=== PATIENT | female | born 1950 | race African-American/Black ===

== ENCOUNTER 2019-05-17 11:38 | Inpatient (IN) ==
[2019-05-17] MEDS ORDERED: FUROSEMIDE 100 MG/10 ML VIAL IV STA (13:14)
[2019-05-17 14:58] LABS: Basophils % 0.5 % (0.0-0.8); Eosinophils # 0.1 10*3/uL (0.0-0.87); Eosinophils % 2.1 % (0.00-10.9); Hematocrit 42.6 VOL% (35.7-47.0); Hemoglobin 13.4 GM/DL (12.0-16.0); Immature Granulocytes % 0.2 %; Immature Granulocytes Absolute 0.01 #; Lymphocytes # 1.4 10*3/uL (1.4-4.0); Lymphocytes % 22.4 % (21.3-54.2); Mean Corpuscular HGB Conc 31.5 GM/DL (32-36); Mean Corpuscular Volume 85.4 FL (87-102); Mean Platelet Volume 12.6 FL (9.6-12.0); Monocytes % 11.2 % (1.7-12.7); Neutrophils % 63.6 % (38.7-73.9); Platelet Count 225 T/CUMM (130-400); Red Blood Count 4.99 MC/CUMM (3.8-5.5); Red Cell Distribution Width 14.4 % (9.3-17.3); White Blood Count 6.2 T/CUMM (4-12)
[2019-05-17 15:21] LABS: Albumin 3.6 G/DL (3.4-5.0); Bilirubin,Total 0.4 MG/DL (0.2-1.0); Calcium 9.1 MG/DL (8.5-10.1); Osmolality,Calculated 290.7 MOS/KG (273-304); Total Protein 7.4 G/DL (6.4-8.3)
[2019-05-17 15:26] LABS: PT Patient Result 10.7 SECS; Partial Thromboplastin Time 29.1 SECS (0-40)
[2019-05-17] MEDS ORDERED: ACETAMINOPHEN 325 MG TABLET PO PRN (15:39)
[2019-05-17] MEDS ORDERED: LACTULOSE 20 GM/30 ML UDCUP PO PRN (15:39)
[2019-05-17] MEDS ORDERED: ONDANSETRON 4 MG/2 ML VIAL IV PRN (15:39)
[2019-05-17] MEDS ORDERED: BISACODYL 5 MG TABLET PO PRN (15:39)
[2019-05-17 15:40] LABS: Apearance,Urine CLEAR (Clear); Bilirubin,Urine Negative (Negative); Blood, Urine Negative (Negative); Glucose,Urine (UA) Negative (Negative); Ketones,Urine Negative (Negative); Mucus,Urine Occasional /LPF (Occasional); Nitrite,Urine Negative (Negative); Protein,Urine 100 MG/DL; RBC,Urine 1 /HPF (0-4); Squamous Epithelial Cell,Urine Occasional /HPF (0-10); Urine Color Yellow (Yellow); Urine Specific Gravity 1.017 (1.001-1.035); Urine Urobilinogen < 2.0 EU/DL (0.2-1.0); WBC,Urine 2 /HPF (0-6)
[2019-05-17] MEDS ORDERED: ENOXAPARIN 40 MG/0.4 ML SYRINGE SUBCUT SCH (16:00)
[2019-05-17] MEDS ORDERED: ASPIRIN EC 325 MG TABLET PO ONE (16:12)
[2019-05-17] MEDS ORDERED: ASPIRIN 325 MG TABLET PO ONE (16:13)
[2019-05-17] MEDS ORDERED: NITROGLYCERIN SL 0.4 MG TABLET SL PRN (16:14)
[2019-05-17] MEDS ORDERED: hydrALAZINE 20 MG/1 ML VIAL IV PRN (16:36)
[2019-05-17 16:46] LABS: Risk Ratio 3.7
[2019-05-17] MEDS ORDERED: DIAZEPAM 5 MG TABLET PO ONE (16:47)
[2019-05-17] MEDS ORDERED: diphenhydrAMINE CAP 25 MG CAPSULE PO ONE (16:47)
[2019-05-17] MEDS ORDERED: POTASSIUM CHLORIDE RIDER 10 MEQ in PREMIX 1 EACH IV PRN (16:47)
[2019-05-17] MEDS ORDERED: MAGNESIUM SULF RIDER 2 GM in PREMIX 1 EACH IV PRN (16:47)
[2019-05-17 17:28] LABS: Troponin I < 0.015 NG/ML (0.00-0.045)
[2019-05-17 20:20] LABS: Troponin I < 0.015 NG/ML (0.00-0.045)
[2019-05-17] MEDS: CARVEDILOL 3.125 MG TABLET PO SCH (20:43)
[2019-05-17] MEDS: MORPHINE 4 MG/1 ML VIAL IV PRN (20:44)
[2019-05-17] MEDS ORDERED: ATORVASTATIN 10 MG TABLET PO SCH (21:00)
[2019-05-17 23:40] LABS: Troponin I < 0.015 NG/ML (0.00-0.045)
[2019-05-18] MEDS: MORPHINE 4 MG/1 ML VIAL IV PRN (00:27)
[2019-05-18 05:01] LABS: Basophils % 0.4 % (0.0-0.8); Eosinophils # 0.1 10*3/uL (0.0-0.87); Eosinophils % 2.5 % (0.00-10.9); Hemoglobin 12.5 GM/DL (12.0-16.0); Immature Granulocytes % 0.2 %; Immature Granulocytes Absolute 0.01 #; Lymphocytes # 1.3 10*3/uL (1.4-4.0); Lymphocytes % 22.6 % (21.3-54.2); Mean Corpuscular HGB Conc 31.3 GM/DL (32-36); Mean Corpuscular Volume 83.9 FL (87-102); Mean Platelet Volume 12.1 FL (9.6-12.0); Monocytes % 11.6 % (1.7-12.7); Neutrophils % 62.7 % (38.7-73.9); Platelet Count 210 T/CUMM (130-400); Red Blood Count 4.77 MC/CUMM (3.8-5.5); Red Cell Distribution Width 14.1 % (9.3-17.3); White Blood Count 5.6 T/CUMM (4-12)
[2019-05-18 05:35] LABS: Calcium 9.3 MG/DL (8.5-10.1); Osmolality,Calculated 292.7 MOS/KG (273-304)
[2019-05-18] MEDS ORDERED: diphenhydrAMINE CAP 25 MG CAPSULE PO ONE (06:40)
[2019-05-18] MEDS ORDERED: DIAZEPAM 5 MG TABLET PO ONE (06:40)
[2019-05-18] MEDS ORDERED: ATORVASTATIN 80 MG TABLET PO SCH (06:42)
[2019-05-18] MEDS ORDERED: SODIUM CHLORIDE 0.9% 1,000 ML IV SCH (07:00)
[2019-05-18] MEDS ORDERED: ASPIRIN CHEW 81 MG TABLET PO SCH (09:00)
[2019-05-18] MEDS ORDERED: DILTIAZEM CD 180 MG CAPSULE PO SCH (09:00)
[2019-05-18] MEDS ORDERED: HEPARIN/NACL 0.9% 2 UNITS/ML 1,000 ML IV ONE (09:23)
[2019-05-18] MEDS ORDERED: fentaNYL 100 MCG/2 ML VIAL ONE (09:37)
[2019-05-18] MEDS ORDERED: MIDAZOLAM 2 MG/2 ML VIAL ONE ×2 (09:37→10:26)
[2019-05-18] MEDS ORDERED: LIDOCAINE 1% 20 ML VIAL ONE (09:37)
[2019-05-18] MEDS: CARVEDILOL 3.125 MG TABLET PO SCH ×2 (09:43→21:06)
[2019-05-18] MEDS: PANTOPRAZOLE 40 MG TABLET PO SCH (09:43)
[2019-05-18] MEDS: FUROSEMIDE 40 MG/4 ML VIAL IV SCH ×2 (09:44→21:06)
[2019-05-18] MEDS ORDERED: BIVALIRUDIN 250 MG VIAL IV ONE (10:06)
[2019-05-18] MEDS ORDERED: NITROGLYCERIN DRIP 50 MG/250 ML BOTTLE IV ONE (10:24)
[2019-05-18] MEDS ORDERED: TICAGRELOR 90 MG TABLET ONE (10:34)
[2019-05-18] MEDS ORDERED: ASPIRIN CHEW 81 MG TABLET PO ONE (10:43)
[2019-05-18] MEDS: TICAGRELOR 90 MG TABLET PO SCH (21:06)
[2019-05-19 05:20] LABS: Basophils % 0.5 % (0.0-0.8); Eosinophils # 0.1 10*3/uL (0.0-0.87); Eosinophils % 1.2 % (0.00-10.9); Hematocrit 42.4 VOL% (35.7-47.0); Hemoglobin 13.6 GM/DL (12.0-16.0); Immature Granulocytes % 0.3 %; Immature Granulocytes Absolute 0.02 #; Lymphocytes # 0.9 10*3/uL (1.4-4.0); Lymphocytes % 13.7 % (21.3-54.2); Mean Corpuscular HGB Conc 32.1 GM/DL (32-36); Mean Platelet Volume 12.1 FL (9.6-12.0); Monocytes % 10.2 % (1.7-12.7); Neutrophils % 74.1 % (38.7-73.9); Platelet Count 224 T/CUMM (130-400); Red Blood Count 5.11 MC/CUMM (3.8-5.5); Red Cell Distribution Width 13.8 % (9.3-17.3); White Blood Count 6.6 T/CUMM (4-12)
[2019-05-19 05:55] LABS: Calcium 9.2 MG/DL (8.5-10.1); Osmolality,Calculated 283.4 MOS/KG (273-304)
[2019-05-19] MEDS: FUROSEMIDE 40 MG/4 ML VIAL IV SCH (08:52)
[2019-05-19] MEDS: CARVEDILOL 3.125 MG TABLET PO SCH (08:53)
[2019-05-19] MEDS: TICAGRELOR 90 MG TABLET PO SCH (08:55)
[2019-05-19] MEDS: PANTOPRAZOLE 40 MG TABLET PO SCH (08:55)
[2019-05-19] MEDS ORDERED: ASPIRIN EC 81 MG TABLET PO SCH (09:00)
[2019-05-19 11:55] VITALS: BP 109/58
== END 2019-05-19 14:17 | disposition home or self-care (01) | DRG 246 ==
LOC: N.EDINP 11:38 → N.ED 11:38 → OBSVTOIN 15:39 → N.TELES 17:17
PROVIDERS: ADMIT Internal Medicine; ATTEND Internal Medicine